=== PATIENT | male | born 1980 | race Caucasian/White ===

== ENCOUNTER 2018-01-07 07:24 | Emergency (ER) | payer OTHER ==
[2018-01-07 07:51] LABS: Absolute Lymphocytes (CBC) 1.9 K/uL (0.7-4.9); Absolute Monocytes 0.4 K/uL (0.1-1.3); Absolute Neutrophil 2.9 K/uL (1.8-8.0); Basophils % 0.8 % (0-1.3); Eosinophils % 1.8 % (0-4.4); Lymphocytes % 35.1 % (15.3-44.8); MCH 30.3 pg (27.0-35.0); MCV 89.6 fL (80-100); MPV 8.3 fL (7.6-11.3); Monocytes % 7.6 % (3.3-12.3); RBC Red Blood Cell Count 4.13 M/uL (4.33-5.43)
[2018-01-07 07:57] LABS: Protime INR 1.07
[2018-01-07 08:01] LABS: Bicarbonate 29 mEq/L (21-31); Glucose Level 104 mg/dL (65-120); Potassium 3.3 mEq/L (3.6-5.0); Sodium Level 133 mEq/L (135-145)
[2018-01-07 08:07] LABS: ALT/SGPT 24 IU/L (10-60); AST/SGOT 21 IU/L (10-42); Albumin 4.3 g/dL (3.2-5.5); Alkaline Phosphatase 52 IU/L (42-121); BUN Blood Urea Nitrogen 12 mg/dL (6-20); Bilirubin Direct 0.1 mg/dL (0-0.2); Bilirubin Total 0.3 mg/dL (0.3-1.2); Protein, Total 6.6 g/dL (6.0-8.3)
[2018-01-07 08:08] LABS: Alcohol Serum/Plasma < 10 mg/dl
--- NOTE | 2018-01-07 08:16 | RAD REPORT ---
EXAM DESCRIPTION: CT - Head Brain Wo Cont - 01/07/2018 8:06 am CLINICAL HISTORY: Slurred speech, TIA/ CVA. COMPARISON: 09/09/2015 TECHNIQUE: All CT scans are performed using dose optimization technique as appropriate and may inclu de automated exposure control or mA/KV adjustment according to patient size. FINDINGS: No intracranial hemorrhage, hydrocephalus or extra-axial fluid collection.No areas of brai n edema or evidence of midline shift. The paranasal sinuses and mastoids are clear. The calvarium is intact. IMPRESSION: No acute intracranial abnormality.
[2018-01-07 08:57] LABS: Barbiturates NEGATIVE (NEGATIVE); Benzodiazepines NEGATIVE (NEGATIVE); Cocaine NEGATIVE (NEGATIVE); METHAMPHETAM NEGATIVE (NEGATIVE); Opiates NEGATIVE (NEGATIVE); Phencyclidine NEGATIVE (NEGATIVE); THC Cannibis NEGATIVE (NEGATIVE)
[2018-01-07 09:08] LABS: Urine Blood NEGATIVE (NEG); Urine Glucose NEGATIVE (NEG); Urine Protein NEGATIVE (NEG); Urine pH 6.5 (5.0-7.0)
--- NOTE | 2018-01-07 09:21 | ER ---
Nurse's Notes [facility] Name: Keegan Joseph Age: 37 yrs Sex: Male : 1980 Arrival Date: 01/07/2018 Time: 07:25 Bed 7 Private MD: Diagnosis: Confusion, sleep deprivation Presentation: 01/07 07:18 Acuity: BABAK 2 sv 07:18 Presenting complaint: EMS states: Pt was going home after work, pt lives in [facility], was found swerving in the road driving in [place], stopped by PD. EMS arrives pt has slurred speech, eyes glassed over, neg LOC. BP 124/78 HR 90 BS-111. Transition of care: patient was not received from another setting of care. Onset of symptoms was January 07, 2018. 07:18 Method Of Arrival: EMS: [facility] 07:19 Risk Assessment: Do you want to hurt yourself or someone else? Patient reports no sv desire to harm self or others. Initial Sepsis Screen: Does the patient meet any 2 criteria? No. Patient's initial sepsis screen is negative. Does the patient have a suspected source of infection? No. Patient's initial sepsis screen is negative. Care prior to arrival: Glucose check: 111. Triage Assessment: 07:20 General: Appears in no apparent distress. comfortable, slender, well developed, sv Behavior is calm, cooperative, appropriate for age. Pain: Denies pain. EENT: No signs and/or symptoms were reported regarding the EENT system. Neuro: Level of Consciousness is awake, alert, obeys commands, Oriented to person, place, time, situation, Supervisor Irrigation are equal bilaterally Moves all extremities. Full function Gait is steady, Speech is slurred, Facial symmetry appears normal, Facial symmetry: tongue is midline, Denies blurred vision dizziness, numbness headache. Cardiovascular: Patient's skin is warm and dry. Pulses are 3+ in right radial artery and left radial artery. Respiratory: Respiratory effort is even, unlabored, Respiratory pattern is regular, symmetrical. GI: No signs and/or symptoms were reported involving the gastrointestinal system. : No signs and/or symptoms were reported regarding the genitourinary system. Derm: Skin is pink, warm \T\ dry. Musculoskeletal: Range of motion: intact in all extremities. Historical: - Allergies: 07:48 No Known Allergies; sv - Home Meds: 07:48 None [Active]; sv - PMHx: 07:48 epilepsy; hypoglycemia; sv - PSHx: 07:48 Appendectomy; sv - Immunization history:: Adult Immunizations up to date. - Ebola Screening: : No symptoms or risks identified at this time. - Social history:: Smoking status: Patient/guardian denies using tobacco. Screenin:48 Abuse screen: Denies threats or abuse. Denies injuries from another. Nutritional sv screening: No deficits noted. Tuberculosis screening: No symptoms or risk factors identified. Fall Risk None identified. Assessment: 07:51 Reassessment: See triage assessment. sv 08:40 Reassessment: Patient appears in no apparent distress at this time. No changes from sv previously documented assessment. Patient and/or family updated on plan of care and expected duration. Pain level reassessed. Patient is alert, oriented x 3, equal unlabored respirations, skin warm/dry/pink. 09:33 Reassessment: Patient appears in no apparent distress at this time. No changes from sv previously documented assessment. Patient and/or family updated on plan of care and expected duration. Pain level reassessed. Patient is alert, oriented x 3, equal unlabored respirations, skin warm/dry/pink. Vital Signs: 07:30 BP 104 / 76; Pulse 79; Resp 17; Temp 98.2; Pulse Ox 100% ; Weight 72.57 kg; Height 5 sv ft. 10 in. (177.80 cm); Pain 0/10; 08:40 BP 100 / 65; Pulse 71; Resp 17; Pulse Ox 100% on R/A; sv 09:33 BP 103 / 66; Pulse 69; Resp 11; Pulse Ox 100% ; sv 07:30 Body Mass Index 22.96 (72.57 kg, 177.80 cm) sv NIH Stroke Scale Scores: 07:25 NIHSS Score: 1 sv ED Course: 07:20 Patient has correct armband on for positive identification. Placed in gown. Bed in low sv position. Call light in reach. Side rails up X2. monitor and storage bin tender on. Pulse ox on. NIBP on. Head of bed elevated. 07:25 Patient arrived in ED. ss 07:26 Amber Bagley RN is Primary Nurse. sv 07:27 Triage completed. sv 07:30 Initial lab(s) drawn, by me, sent to lab. Inserted saline lock: 20 gauge in right sv antecubital area, using aseptic technique. Blood collected. Flushed right antecubital with 5 ml normal saline. 07:33 Yusuf Medina MD is Attending Physician. kdr 07:48 Arm band placed on right wrist. sv 07:52 ED physician to see patient. sv 07:53 EKG done, by earth science technician. reviewed by Yusuf Medina MD. tc 08:[address] via wheelchair. sv 08:05 CT completed. Patient tolerated procedure well. Patient moved to CT via stretcher. sj Patient moved back from CT. 08:06 CT Head Brain wo Cont In Process Unspecified. EDMS 08:28 Urine collected: clean catch specimen, clear, isis colored. jb1 09:38 No provider procedures requiring assistance completed. IV discontinued, intact, sv bleeding controlled, No redness/swelling at site. Pressure dressing applied. Administered Medications: No medications were administered Outcome: 09:20 Discharge ordered by . kdr 09:38 Discharged to home ambulatory, with family, Pt's father driving pt home. sv 09:38 Condition: stable 09:38 Discharge instructions given to patient, Instructed on discharge instructions, follow up and referral plans. Demonstrated understanding of instructions, follow-up care. 09:39 Patient left the ED. sv NIH Stroke Scale - NIH Stroke Score Date: 01/07/2018 Time: 07:25 Total Score = 1 1a. Level of Consciousness (LOC) - 0(Alert) 1b. Level of Consciousness (LOC) (Year \T\ Age) - 0(Both) 1c. LOC Commands (Open \T\ Closes Eyes/Electrician Radio) - 0(Both) 2. Best Gaze (Lateral Gaze Paresis) - 0(Normal) 3. Visual Field Loss - 0(No visual loss) 4. Facial Palsy - 0(Normal) 5a. Left Arm: Motor (10-second hold) - 0(No drift) 5b. Right Arm: Motor (10-second hold) - 0(No drift) 6a. Left Leg: Motor (5-second hold - always test supine) - 0(No drift) 6b. Right Leg: Motor (5-second hold - always test supine) - 0(No drift) 7. Limb Ataxia (finger/nose \T\ heel/kiran - test with eyes open) - 0(Absent) 8. Sensory Loss (pinprick arms/legs/face) - 0(Normal) 9. Best Language: Aphasia (description/naming/reading) - 0(No aphasia) 10. Dysarthria (speech clarity - read or repeat words) - 1(Mild to Moderate) 11. Extinction and Inattention (visual/tactile/auditory/spatial/personal) - 0(No abnormality) Initials: sv Signatures: Dispatcher [employer] Thomas Arcos jbAmber Singh RN RN sv Rittger, Kevin, MD MD kdr Jones, Susan sj Smirch, Shelby, RN RN ss Callis, Tiffany, compression molding machine operator EKG Ttc
--- NOTE | 2018-01-07 09:21 | EDPHYS ---
Physician Documentation [facility] Name: Keegan Joseph Age: 37 yrs Sex: Male : 1980 Arrival Date: 01/07/2018 Time: 07:25 Bed 7 Private MD: ED Physician Yusuf Medina HPI: 01/07 07:54 This 37 yrs old Male presents to ER via EMS with complaints of Confusion. kdr 07:54 The patient presents with confusion. Onset: The symptoms/episode began/occurred at an kdr unknown time. Possible causes: unknown. Associated signs and symptoms: Pertinent positives: The patient was on his [address] home from work when he was pulled over by the police who indicated that he was swerving. When police evaluated the patient, they thought his speech was slurred and EMS was called who then brought him to the ED. The patient denies any current issues and states that he did not know he was swerving and feels that his speech is normal. He has no other known precipitating factors. Current symptoms: In the emergency department the patient's symptoms are unchanged from the initial presentation. Patient's baseline: Neuro: alert and fully oriented, Motor: no deficits, Ambulation: walks without assistance, Speech: slurred, Speech may be secondary to epilepsy as a child. The patient has not experienced similar symptoms in the past. The patient has not recently seen a physician. Historical: - Allergies: 07:48 No Known Allergies; sv - Home Meds: 07:48 None [Active]; sv - PMHx: 07:48 epilepsy; hypoglycemia; sv - PSHx: 07:48 Appendectomy; sv - Immunization history:: Adult Immunizations up to date. - Ebola Screening: : No symptoms or risks identified at this time. - Social history:: Smoking status: Patient/guardian denies using tobacco. ROS: 07:54 Constitutional: Negative for fever, chills, and weight loss, Eyes: Negative for injury, kdr pain, redness, and discharge, ENT: Negative for injury, pain, and discharge, Neck: Negative for injury, pain, and swelling, Cardiovascular: Negative for chest pain, palpitations, and edema, Respiratory: Negative for shortness of breath, cough, wheezing, and pleuritic chest pain, Abdomen/GI: Negative for abdominal pain, nausea, vomiting, diarrhea, and constipation, Back: Negative for injury and pain, : Negative for injury, bleeding, discharge, and swelling, MS/Extremity: Negative for injury and deformity, Skin: Negative for injury, rash, and discoloration, Psych: Negative for depression, anxiety, suicide ideation, homicidal ideation, and hallucinations, Allergy/Immunology: Negative for hives, rash, and allergies, Endocrine: Negative for neck swelling, polydipsia, polyuria, polyphagia, and marked weight changes, Hematologic/Lymphatic: Negative for swollen nodes, abnormal bleeding, and unusual bruising. 07:54 Neuro: Positive for altered mental status, speech changes, The patient denies but on first observation, he appears to have slightly slurred/slow speech. His mentation is normal. Exam: 07:54 Constitutional: This is a well developed, well nourished patient who is awake, alert, kdr and in no acute distress. Head/Face: Normocephalic, atraumatic. Eyes: Pupils equal round and reactive to light, extra-ocular motions intact. Lids and lashes normal. Conjunctiva and sclera are non-icteric and not injected. Cornea within normal limits. Periorbital areas with no swelling, redness, or edema. Neck: Trachea midline, no thyromegaly or masses palpated, and no cervical lymphadenopathy. Supple, full range of motion without nuchal rigidity, or vertebral point tenderness. No Meningismus. Chest/axilla: Normal chest wall appearance and motion. Nontender with no deformity. No lesions are appreciated. Cardiovascular: Regular rate and rhythm with a normal S1 and S2. No gallops, murmurs, or rubs. Normal PMI, no JVD. No pulse deficits. Respiratory: Lungs have equal breath sounds bilaterally, clear to auscultation and percussion. No rales, rhonchi or wheezes noted. No increased work of breathing, no retractions or nasal flaring. Abdomen/GI: Soft, non-tender, with normal bowel sounds. No distension or tympany. No guarding or rebound. No evidence of tenderness throughout. Back: No spinal tenderness. No costovertebral tenderness. Full range of motion. Skin: Warm, dry with normal turgor. Normal color with no rashes, no lesions, and no evidence of cellulitis. MS/ Extremity: Pulses equal, no cyanosis. Neurovascular intact. Full, normal range of motion. Neuro: Awake and alert, GCS 15, oriented to person, place, time, and situation. Cranial nerves II-XII grossly intact. Motor strength 5/5 in all extremities. Sensory grossly intact. Cerebellar exam normal. Normal gait. Psych: Awake, alert, with orientation to person, place and time. Behavior, mood, and affect are within normal limits. Vital Signs: 07:30 BP 104 / 76; Pulse 79; Resp 17; Temp 98.2; Pulse Ox 100% ; Weight 72.57 kg; Height 5 sv ft. 10 in. (177.80 cm); Pain 0/10; 08:40 BP 100 / 65; Pulse 71; Resp 17; Pulse Ox 100% on R/A; sv 09:33 BP 103 / 66; Pulse 69; Resp 11; Pulse Ox 100% ; sv 07:30 Body Mass Index 22.96 (72.57 kg, 177.80 cm) sv NIH Stroke Scale Scores: 07:25 NIHSS Score: 1 sv MDM: 07:54 Data reviewed: vital signs, nurses notes, lab test result(s), radiologic studies. kdr Counseling: I had a detailed discussion with the patient and/or guardian regarding: the historical points, exam findings, and any diagnostic results supporting the discharge/admit diagnosis, lab results, radiology results, the need for outpatient follow up. 09:20 Patient medically screened. kdr 01/07 07:36 Order name: Glucose, Ancillary Testing; Complete Time: 08:30 EDMS 01/07 07:38 Order name: Acetaminophen; Complete Time: 08:30 sv 01/07 07:38 Order name: Basic Metabolic Panel; Complete Time: 08:30 sv 01/07 07:38 Order name: CBC with Diff; Complete Time: 08:30 sv 01/07 07:38 Order name: ETOH Level; Complete Time: 08:30 sv 01/07 07:38 Order name: Hepatic Function; Complete Time: 08:30 sv 01/07 07:38 Order name: PT-INR; Complete Time: 08:30 sv 01/07 07:38 Order name: Ptt, Activated; Complete Time: 08:30 sv 01/07 07:38 Order name: Salicylate; Complete Time: 09:17 sv 01/07 07:38 Order name: Urine Drug Screen; Complete Time: 09:17 sv 01/07 07:38 Order name: EKG; Complete Time: 07:39 sv 08 07:38 Order name: EKG - Nurse/Tech; Complete Time: 08:21 sv 08 07:38 Order name: CT Head Brain wo Cont; Complete Time: 08:30 sv 08 08:48 Order name: Urine Dipstick--Ancillary (enter results); Complete Time: 09:17 bd 01/07 07:38 Order name: IV Saline Lock; Complete Time: 07:39 sv 01/07 07:38 Order name: Labs collected and sent; Complete Time: 07:39 sv 01/07 07:38 Order name: Urine Dipstick-Ancillary (obtain specimen); Complete Time: 08:21 sv Administered Medications: No medications were administered Disposition: 01/07/18 09:20 Discharged to Home. Impression: Confusion, sleep deprivation. - Condition is Stable. - Discharge Instructions: Confusion. - Medication Reconciliation Form, Thank You Letter form. - Follow up: Private Physician; When: 1 - 2 days; Reason: If symptoms return, Further diagnostic work-up, Recheck today's complaints, Continuance of care, Re-evaluation by your physician. - Problem is new. - Symptoms have improved. NIH Stroke Scale - NIH Stroke Score Date: 01/07/2018 Time: 07:25 Total Score = 1 1a. Level of Consciousness (LOC) - 0(Alert) 1b. Level of Consciousness (LOC) (Year \T\ Age) - 0(Both) 1c. LOC Commands (Open \T\ Closes Eyes/Furnace Operator And Tender) - 0(Both) 2. Best Gaze (Lateral Gaze Paresis) - 0(Normal) 3. Visual Field Loss - 0(No visual loss) 4. Facial Palsy - 0(Normal) 5a. Left Arm: Motor (10-second hold) - 0(No drift) 5b. Right Arm: Motor (10-second hold) - 0(No drift) 6a. Left Leg: Motor (5-second hold - always test supine) - 0(No drift) 6b. Right Leg: Motor (5-second hold - always test supine) - 0(No drift) 7. Limb Ataxia (finger/nose \T\ heel/kiran - test with eyes open) - 0(Absent) 8. Sensory Loss (pinprick arms/legs/face) - 0(Normal) 9. Best Language: Aphasia (description/naming/reading) - 0(No aphasia) 10. Dysarthria (speech clarity - read or repeat words) - 1(Mild to Moderate) 11. Extinction and Inattention (visual/tactile/auditory/spatial/personal) - 0(No abnormality) Initials: sv Signatures: Dispatcher [employer] Amber Osborn RN RN sv Yusuf Medina MD MD [facility] Corrections: (The following items were deleted from the chart) 09:39 09:20 01/07/2018 09:20 Discharged to Home. Impression: Confusion, sleep sv deprivation. Condition is Stable. Forms are Medication Reconciliation Form, Thank You Letter, Antibiotic Education, Prescription Opioid Use. Follow up: Private Physician; When: 1 - 2 days; Reason: If symptoms return, Further diagnostic work-up, Recheck today's complaints, Continuance of care, Re-evaluation by your physician. Problem is new. Symptoms have improved. kdr
--- NOTE | 2018-01-08 07:59 | EKG ---
Test Date: 2018-01-07 Test Time: 07:42:30 Document Control Associate: FLORESITA MEASUREMENT RESULTS: Intervals: Rate: 74 OK: 140 QRSD: 88 QT: 418 QTc: 463 [place]: P: 66 OK: 140 QRS: 52 T: 48 INTERPRETIVE STATEMENTS: Normal sinus rhythm Normal ECG Compared to ECG 09/09/2015 13:59:45 Sinus tachycardia no longer present Electronically Signed On 01-08-18 07:55:20 CDT by Rafa Hay
== END 2018-01-07 09:39 | disposition home or self-care (01) ==
LOC: ER 07:24
DX: Z72.820 Sleep deprivation (principal)
CPT/HCPCS: 36415; 70450; 80048; 80076; 80307; 80320; 80329; 81003; 82962; 85025; 85610; 85730; 93005; 99285